=== PATIENT | male | born 1975 | race Caucasian/White ===

== ENCOUNTER 2017-02-23 07:49 | Emergency (ER) | payer MEDICAID, OTHER ==
[~2017-02-23] VITALS: Ht 175.3 cm; Wt 110.0 kg
[~2017-02-23 07:49] MED LIST: FLUT9.9S NASAL; IBUP800T25 PO; PSEU30TA38 PO; ZOF8 PO
[2017-02-23 07:51] VITALS: Ht 175.3 cm; Wt 110.0 kg
[2017-02-23] MEDS ORDERED: METOCLOPRAMIDE 10 MG INJ IV STA (08:07)
[2017-02-23] MEDS ORDERED: DIPHENHYDRAMINE 50 MG INJ IV STA (08:07)
[2017-02-23] MEDS ORDERED: KETOROLAC 30 MG INJ IV STA (08:07)
[2017-02-23] MEDS ORDERED: SOD CHLORIDE 0.9% 1,000 ML IV STA (08:07)
--- NOTE | 2017-02-23 08:21 | ERD ---
ER Documentation Chief Complaint Date/Time DATE: 02/23/17 Chief Complaint Headache x 4 days HPI The patient is a 41-year-old male who presents to the Emergency Department with complaint of headache. The patient reports that his symptoms began four days ago, with gradual onset of right-sided frontal headache that radiates occipitally. The headache has been coming and going since onset. He rates his current pain as 9/10, which he notes did not respond to the 500 mg of Tylenol that he took this morning. He reports that shortly after onset of his symptoms, he did have a short period of nausea and photophobia, though this has since resolved. He denies any other visual changes, diplopia or vision loss. Denies neck pain or neck stiffness. Denies fevers, sweats, chills, vomiting, chest pain , palpitations or shortness of breath. Denies history of similar symptoms in the past. Denies recent head trauma or injury. Denies numbness, paresthesias or weakness of the distal extremity. Denies dizziness, confusion, lethargy or focal deficits. Denies difficulty with speech or ambulation. Denies loss of consciousness, syncope or seizure-like activity. No other complaints at this time. ROS All systems reviewed and are negative except as per history of present illness. Medications Home Meds Active Scripts Naproxen* (Naprosyn*) 500 Mg Tablet, 500 MG PO BID Y for PAIN AND/OR INFLAMMATION, #30 TAB Prov:JESSIE RAMIREZ PA-C 02/23/17 Ibuprofen* (Motrin*) 800 Mg Tab, 800 MG PO Q6, #30 TAB Prov:BRYCE SNIDER PA-C 04/10/16 Fluticasone Propionate (Flonase Allergy Relief) 9.9 Ml [place].susp, 1 SPRAY NASAL BID, #1 BOTTLE TO EACH NOSTRIL Prov:BRYCE SNIDER PA-C 04/10/16 Pseudoephedrine Hcl* (Pseudoephedrine Hcl*) 30 Mg Tablet, 30 MG PO Q6 Y for CONGESTION, #30 TAB Prov:BRYCE SNIDER PA-C 04/10/16 Ondansetron Hcl* (Zofran* ODT) 8 mg -ODT Tab.disper, 8 MG PO Q6 Y for NAUSEA AND /OR VOMITING, #10 TAB Prov:SUNDEEP TSAI [place] SMITH 10/25/15 Allergies Allergies: Coded Allergies: No Known Drug Allergies (Verified Allergy, Unknown, 02/23/17) PMhx/Soc Medical and Surgical Hx: pt denies Medical Hx, pt denies Surgical Hx History of Surgery: No Anesthesia Reaction: No Hx Neurological Disorder: No Hx Respiratory Disorders: No Hx Cardiac Disorders: No Hx Psychiatric Problems: No Hx Miscellaneous Medical Probl: No Hx Alcohol Use: No Hx Substance Use: No Hx Tobacco Use: No Smoking Status: Never smoker Physical Exam Vitals Vital Signs Date Time Temp Pulse Resp B/P Pulse Ox O2 Delivery O2 Flow Rate FiO2 02/23/17 07:51 98.7 95 18 134/93 99 Physical Exam GENERAL: Well-developed, well-nourished, male, in no acute distress. HEENT: Head is normocephalic, atraumatic. No tenderness to palpation or percussion over frontal or maxillary sinuses. No scleral pallor or icterus. Pupils equal, round and reactive to light. Extraocular movements intact. Conjunctiva pink. Funduscopic examination with normal cup-to-disc ratio. No papilledema. No nystagmus. No photophobia. Moist mucous membranes. Clear oropharynx. No pharyngeal erythema or exudates. Bilaterally tympanic membranes are clear with no evidence of erythema, effusion or dulling of the light reflex. NECK: Supple. No masses, no tenderness, no lymphadenopathy. Trachea midline. No nuchal rigidity. No meningismus. Full range of motion. RESPIRATORY: Lungs are clear to auscultation bilaterally. Equal breath sounds. Normal expiratory effort. CARDIOVASCULAR: Regular rate and rhythm. S1 and S2 normal. BACK: Full range of motion. EXTREMITIES: No clubbing, cyanosis, or edema. Normal skin perfusion. Moving all extremities. No focal swelling or erythema. NEUROLOGIC: The patient is awake, alert, oriented to person, place and time. Speech is fluent. Language parameters are intact. Follows commands well. Comprehension is intact. Cranial nerves II through XII are intact. Pupils are equal and reactive bilaterally. Extraocular movements are intact. There is no nystagmus. Facial sensation and facial movements are symmetrical. Uvula elevates symmetrically. Tongue is midline. Motor examination reveals 5/5 strength in bilateral upper and lower extremities. Sensory examination is grossly intact to light touch. Reflexes symmetrical. Normal [id number] testing. No visual field deficits. Vision grossly intact. Gait is observed and normal, no ataxia. INTEGUMENT: Skin is intact. Warm and dry. No rashes, no petechiae present. Normal turgor. PSYCHIATRIC: Cooperative. Appropriate. Results 24 hrs Current Medications Medications (Trade) Dose Ordered Sig/Shaista Route PRN Reason Start Time Stop Time Status Last Admin Dose Admin Sodium Chloride (NS) 1,000 ml @ 1,000 mls/hr Q1H STAT IV 02/23/17 08:07 02/23/17 09:06 DC 02/23/17 08:22 Metoclopramide HCl (Reglan) 10 mg ONCE STAT IV 02/23/17 08:07 02/23/17 08:10 DC 02/23/17 09:02 Ketorolac Tromethamine (Toradol) 30 mg ONCE STAT IV 02/23/17 08:07 02/23/17 08:10 DC 02/23/17 09:01 Diphenhydramine HCl (Benadryl) 25 mg ONCE STAT IV 02/23/17 08:07 02/23/17 08:10 DC 02/23/17 09:02 Procedures/MDM The patient's case was reviewed and discussed with Dr. Silva, who agrees with the plan of care including treatment and advanced imaging as appropriate. Shared decision making held with the patient. Risks versus benefits of CT imaging were discussed. Given no focal neurologic findings, meningeal signs or altered mental status, low risk for intracranial abnormality. However, patient still requesting CT imaging. Therefore, per patient request, CT imaging will be performed. DIAGNOSTIC TESTS AND INTERPRETATION: PROCEDURE: CT Brain without. CLINICAL INDICATION: Headache TECHNIQUE: A CT of the brain was performed utilizing axial sections from the skull base through the vertex without contrast. The scan was reviewed in soft tissue brain and high frequency resolution bone algorithm windows. Images were reviewed on a high-resolution PACS workstation. images. The calculated radiation dose measures 720.23 mGy centimeters. The CTDI measures 43.27 mGy. One or more of the following dose reduction techniques were used: - Automated exposure control. - Adjustment of the mA and/or kV according to patient size . - Use of iterative reconstruction technique. Images were reviewed on a high-resolution PACS workstation COMPARISON: None available FINDINGS:The ventricles and sulci are symmetric and normal in size and morphology. There is no evidence of intracranial hemorrhage, mass effect, edema or midline shift. No abnormal intra-axial or extra-axial fluid collections are seen. The density of the brain is normal and the upton/white matter differentiation is well preserved. Brainstem and posterior fossa structures are equally unremarkable. The osseous structures and visualized paranasal sinuses are unremarkable. The surrounding soft tissue scalp and bony calvarium are intact and normal. IMPRESSION:No acute intracranial findings. .Corey Connolly MD, MD Date Time Electronically viewed and signed by .Corey Connolly MD, on 02/23/2017 08:37 MEDICAL DECISION MAKING: This is a 41-year-old male presenting to the Emergency Department with an intermittent frontal headache for 4 days. The patient had no significant abnormalities on physical examination, exhibited no altered mental status, neurologic deficits or meningeal signs. The differential diagnosis includes, but is not limited to, subarachnoid hemorrhage, intracerebral bleeding , cerebral aneurysm, meningitis, encephalitis, brain abscess, embolic stroke, brain tumor, temporal arteritis, sinusitis, migraine headache, tension headache , acute glaucoma, cluster headache, pseudotumor cerebri, encephalopathy. No acute abnormalities were noted on head CT ordered. His condition improved during his stay. After rest and administration of Toradol, Benadryl, Reglan and a liter of fluids the patient reports no new complaints and significantly decreased pain. Upon my review and interpretation of the patient's presentation and overall ER course, I believe the patient's symptoms are most consistent with a headache. At this time, the patient is in stable condition and therefore can be discharged home with a prescription for Naproxen and given strict return precautions for signs of deteriorating or worsening condition. He is advised to follow up with his primary care provider for reevaluation and further management within 2-3 days, or to return to the ER sooner for any worsening symptoms. I shared my medical decision making and plan with the patient at length and in great detail, and the patient verbally understands and agrees with the plan for further observation and care as an outpatient. At the time of discharge, all questions were answered. Departure Diagnosis: Primary Impression: Headache Headache type: unspecified Headache chronicity pattern: acute headache Intractability: not intractable Qualified Code: R51 - Acute nonintractable headache, unspecified headache type Condition: Stable Patient Instructions: Headache, Unspecified, Self-Care for Headaches Additional Instructions: Llame al doctor MAANA y keegan jerilyn SAÚL PARA DENTRO DE 2-3 LIPSCOMB.Dgale a la secretaria que nosotros le instruimos hacer esta saúl.Avise o llame si cook condicin se empeora antes de la saúl. Regresa aqui si peor o no mejor. JESSIE RAMIREZ PA-C Feb 23, 2017 08:20
--- NOTE | 2017-02-23 08:37 | RADRPT ---
PROCEDURE: CT Brain without. CLINICAL INDICATION: Headache TECHNIQUE: A CT of the brain was performed utilizing axial sections from the skull base through th e vertex without contrast. The scan was reviewed in soft tissue brain and high frequency resolution bone algorithm windows. Images were reviewed on a high-resolution PACS workstation. images. The c alculated radiation dose measures 720.23 mGy centimeters. The CTDI measures 43.27 mGy. One or more of the following dose reduction techniques were used: - Automated exposure control. - Adjustment of the mA and/or kV according to patient size . - Use of iterative reconstruction technique. Images were reviewed on a high-resolution PACS workstation COMPARISON: None available FINDINGS: The ventricles and sulci are symmetric and normal in size and morphology. There is no evidence of i ntracranial hemorrhage, mass effect, edema or midline shift. No abnormal intra-axial or extra-axial fluid collections are seen. The density of the brain is normal and the upton/white matter different iation is well preserved. Brainstem and posterior fossa structures are equally unremarkable. The o sseous structures and visualized paranasal sinuses are unremarkable. The surrounding soft tissue sc alp and bony calvarium are intact and normal. IMPRESSION: 1. No acute intracranial findings. RPTAT: EE .Corey Connolly MD, MD Date Time Electronically viewed and signed by .Corey Connolly MD, MD on 02/23/2017 08:37 .d/
[2017-02-23] MEDS ORDERED: NAPR-260 PO (08:41)
[2017-02-23 09:41] VITALS: BP 130/81; PULSE 74; RESP 16; TEMP 98.1
== END 2017-02-23 09:43 | disposition home or self-care (01) ==
LOC: FTE 07:49
DX: R51 Headache (principal)
CPT/HCPCS: 70450; 96374; 96375; J1200; J1885; J2765; J7030; Z7502

== ENCOUNTER 2017-05-17 11:37 | Emergency (ER) | payer MEDICAID, OTHER ==
[~2017-05-17] VITALS: Ht 185.4 cm; Wt 111.0 kg
[~2017-05-17 11:37] MED LIST changes: +NAPR-260 PO
[2017-05-17 11:45] VITALS: Ht 185.4 cm; Wt 111.0 kg
--- NOTE | 2017-05-17 12:52 | ERD ---
ER Documentation Chief Complaint Date/Time DATE: 05/17/17 TIME: 12:50 Chief Complaint 8 left knee pain HPI 41-year-old male complains of left-sided knee pain that radiates to his left hip for the past 9 months. 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 He also states he has tried ibuprofen which has helped on and off. Is better with rest, described as achy and it radiates upwards of his hip, he has no difficulty with ambulation. He denies any back pain associated with fevers or chills. He denies trauma. ROS All systems reviewed and are negative except as per history of present illness. Medications Home Meds Active Scripts Naproxen* (Naprosyn*) 500 Mg Tablet, 500 MG PO BID Y for PAIN AND/OR INFLAMMATION, #30 TAB Prov:MILAGROS MCCLENDON PA-C 05/17/17 Naproxen* (Naprosyn*) 500 Mg Tablet, 500 MG PO BID Y for PAIN AND/OR INFLAMMATION, #30 TAB Prov:JESSIE RAMIREZ PA-C 02/23/17 Ibuprofen* (Motrin*) 800 Mg Tab, 800 MG PO Q6, #30 TAB Prov:BRYCE SNIDER PA-C 04/10/16 Fluticasone Propionate (Flonase Allergy Relief) 9.9 Ml [place].susp, 1 SPRAY NASAL BID, #1 BOTTLE TO EACH NOSTRIL Prov:BRYCE SNIDER PA-C 04/10/16 Pseudoephedrine Hcl* (Pseudoephedrine Hcl*) 30 Mg Tablet, 30 MG PO Q6 Y for CONGESTION, #30 TAB Prov:BRYCE SNIDER PA-C 04/10/16 Ondansetron Hcl* (Zofran* ODT) 8 mg -ODT Tab.disper, 8 MG PO Q6 Y for NAUSEA AND /OR VOMITING, #10 TAB Prov:SUNDEEP TSAI PA-C 10/25/15 Allergies Allergies: Coded Allergies: No Known Drug Allergies (Verified Allergy, Unknown, 05/17/17) PMhx/Soc History of Surgery: No Anesthesia Reaction: No Hx Neurological Disorder: No Hx Respiratory Disorders: No Hx Cardiac Disorders: No Hx Psychiatric Problems: No Hx Miscellaneous Medical Probl: No Hx Alcohol Use: No Hx Substance Use: No Hx Tobacco Use: No Physical Exam Vitals Vital Signs Date Time Temp Pulse Resp B/P Pulse Ox O2 Delivery O2 Flow Rate FiO2 05/17/17 11:45 98.0 98 18 143/83 97 Physical Exam General: Well-developed, well-nourished. The patient appears in no acute distress. HEENT: Head is normocephalic, atraumatic. No scleral icterus. Neck: Supple. Nontender. Lungs: Clear to auscultation. Normal air movement. Heart: Regular rate and rhythm. S1 and S2 are normal. No murmurs, gallops, or rubs. Abdomen: Nondistended. Extremities: Patient's left hip is normal axis, he is full range of motion with flexion and extension. Lower Extremity - bilateral: Skin: No laceration Compartments: Soft Motor: Full active range of motion hip/knee/ankle/foot Sensation: Intact to light touch FDWS/MF/LF/P surfaces. Bones: Nontender pelvis/knee/proximal tibia/ malleoli/foot Joints: No effusion or laxity Pulses/Perfusion: 2+ DP, Capillary refill < 2 seconds Neurologic: Alert and oriented 3. No focal deficits. Normal speech and gait. Skin: Normal turgor. No rash or lesions. Results 24 hrs Current Medications Medications (Trade) Dose Ordered Sig/Shaista Route PRN Reason Start Time Stop Time Status Last Admin Dose Admin Tramadol HCl (Ultram) 50 mg ONCE ONCE PO 05/17/17 13:00 05/17/17 13:01 DC 05/17/17 13:18 DIAGNOSTIC IMAGING REPORT Patient: EDUARDO JULES : 1975 Age: 41 Sex: M MR #: [id number] DOS: 05/17/17 1247 Ordering MD: MILAGROS MCCLENDON PA-C Location: [facility] Room/Bed: PROCEDURE: Left knee series. CLINICAL INDICATION: Left knee pain TECHNIQUE: Three views of the left knee. COMPARISON: None available FINDINGS: There is normal mineralization and alignment of the left knee. No acute fracture or dislocation is seen. Joint spaces are well maintained. There is no evidence of osteophyte formation or erosion. No definite joint effusion is seen. The soft tissues are within normal limits. IMPRESSION: 1. Unremarkable left knee x-ray series. RPTAT: KK .Nick Snowden MD, MD Date Time Electronically viewed and signed by .Nick Snowden MD, MD on 2016 14:16 .B/ CC: MILAGROS MCCLENDON PA-C DIAGNOSTIC IMAGING REPORT Patient: EDUARDO JULES : 1975 Age: 41 Sex: M MR #: [id number] DOS: 05/17/17 1247 Ordering MD: MILAGROS MCCLENDON PA-C Location: [facility] Room/Bed: PROCEDURE: Left hip series. CLINICAL INDICATION: Left hip pain TECHNIQUE: 2 views of the left hip were performed. COMPARISON: None. FINDINGS: There is normal mineralization and alignment of the bones of the left hip. There is no evidence of acute fracture or dislocation. Joint spaces are well maintained and there is no evidence of osteophyte formation or erosion. The soft tissues are within normal limits. IMPRESSION: 1. Unremarkable left hip x-ray series. RPTAT: KK .Nick Snowden MD, MD Date Time Electronically viewed and signed by .Nick Snowden MD, MD on 2016 14:17 .B/ CC: MILAGROS MCCLENDON PA-C Procedures/[facility] ED course: Patient's pain was treated with tramadol in the emergency room. Medical decision making: This is a 41-year-old male comes in with left pain radiating to left hip for 9 months, patient had normal x-rays, no osseous deformities no masses. No signs of fracture, or dislocation. I doubt septic arthritis. Patient likely has pain consistent with straining at work. Departure Diagnosis: Primary Impression: Knee pain Additional Impression: Left hip pain Condition: Good MILAGROS MCCLENDON PA-C May 17, 2017 12:51
[2017-05-17] MEDS ORDERED: traMADol 50 MG TAB PO ONE (13:00)
--- NOTE | 2017-05-17 14:16 | RADRPT ---
PROCEDURE: Left knee series. CLINICAL INDICATION: Left knee pain TECHNIQUE: Three views of the left knee. COMPARISON: None available FINDINGS: There is normal mineralization and alignment of the left knee. No acute fracture or dislocation is seen. Joint spaces are well maintained. There is no evidence of osteophyte formation or erosion. No definite joint effusion is seen. The soft tissues are within normal limits. IMPRESSION: 1. Unremarkable left knee x-ray series. RPTAT: KK .Nick Snowden MD, Date Time Electronically viewed and signed by .Nick Snowden MD, on 05/17/2017 14:16 .B/
--- NOTE | 2017-05-17 14:17 | RADRPT ---
PROCEDURE: Left hip series. CLINICAL INDICATION: Left hip pain TECHNIQUE: 2 views of the left hip were performed. COMPARISON: None. FINDINGS: There is normal mineralization and alignment of the bones of the left hip. There is no evidence of acute fracture or dislocation. Joint spaces are well maintained and there is no evidence of osteoph yte formation or erosion. The soft tissues are within normal limits. IMPRESSION: 1. Unremarkable left hip x-ray series. RPTAT: KK .Nick Snowden MD, Date Time Electronically viewed and signed by .Nick Snowden MD, on 05/17/2017 14:17 .B/
[2017-05-17] MEDS ORDERED: NAPR-260 PO (14:21)
== END 2017-05-17 14:26 | disposition home or self-care (01) ==
LOC: FTE 11:37
DX: M25.562 Pain in left knee (principal); M25.552 Pain in left hip
CPT/HCPCS: 73510; 73562; Z7502; Z7610

== ENCOUNTER 2018-04-14 06:54 | Emergency (ER) | END 2018-04-14 08:56 | disposition home or self-care (01) ==